=== PATIENT | female | born 1995 | race Caucasian/White ===

== ENCOUNTER 2017-05-31 13:37 | Emergency (ER) | payer MEDICAID ==
[2017-05-31 14:02] VITALS: BP 132/91; PULSE 71; RESP 16; TEMP 98.5; O2SAT 98
--- NOTE | 2017-05-31 14:41 | C.PDOC ---
History Of Present Illness 21 yo female c/o left ear pain. She notes that she was cleaning her ears and got a qtip stuck in it last night. No discharge. No fever. Time Seen by Provider: 05/31/17 14:10 Chief Complaint (Nursing): ENT Problem History Per: Patient History/Exam Limitations: None Onset/Duration Of Symptoms: Hrs Current Symptoms Are (Timing): Still Present Past Medical History Vital Signs: Last Vital Signs Temp 98.5 F 05/31/17 13:58 Pulse 71 05/31/17 13:58 Resp 16 05/31/17 13:58 BP 132/91 H 05/31/17 13:58 Pulse Ox 98 05/31/17 13:58 Family History: States: No Known Family Hx - Social History Hx Alcohol Use: No Hx Substance Use: No - Immunization History Hx Tetanus Toxoid Vaccination: No Hx Influenza Vaccination: No Hx Pneumococcal Vaccination: No Review Of Systems Constitutional: Negative for: Fever ENT: Positive for: Ear Pain. Negative for: Ear Discharge Cardiovascular: Negative for: Chest Pain Respiratory: Negative for: Cough Physical Exam - Physical Exam Appears: Well, Non-toxic, No Acute Distress Skin: Normal Color, Warm, Dry Head: Atraumatic, Normacephalic Eye(s): bilateral: Normal Inspection, EOMI Ear(s): Left: Other ((+) FB ), Right: Normal Nose: Normal Oral Mucosa: Moist Neck: Normal, Normal ROM, Supple Chest: Symmetrical Cardiovascular: Rhythm Regular Respiratory: Normal Breath Sounds Back: Normal Inspection Extremity: Normal ROM Neurological/Psych: Oriented x3, Normal Speech ED Course And Treatment O2 Sat by Pulse Oximetry: 98 Progress Note: Cotton removed with alligator forceps without difficutly. PT tolerated well. TM visualized intact, no erythema or buldging. Disposition - Disposition Referrals: Bertrand Tam MD [Staff Provider] - Disposition: HOME/ ROUTINE Disposition Time: 14:39 Condition: STABLE Additional Instructions: Follow up with your primary medical doctor or clinic in 2-5 days for further evaluation. Take medications as prescribed. Return to the emergency department at any time if symptoms persist or worsen. Instructions: Ear Foreign Body (ED) - Clinical Impression Clinical Impression: Ear foreign body
== END 2017-05-31 14:50 | disposition home or self-care (01) ==
LOC: C.ER 13:37
DX: T16.2XXA Foreign body in left ear, initial encounter (principal); X58.XXXA Exposure to other specified factors, initial encounter

== ENCOUNTER 2018-05-01 20:43 | Emergency (ER) | payer MEDICAID ==
[2018-05-01 21:32] VITALS: BP 120/85; PULSE 66; RESP 20; TEMP 98.7; O2SAT 100
--- NOTE | 2018-05-01 21:51 | C.PDOC ---
History Of Present Illness Patient complains of right ear pain and clogged sensation for 2 days with associated decreased hearing today. She reports having cold symptoms for one week and self medicating with OTC cold medications. Denies fevers, chills, headache, neck pain, dizziness. Time Seen by Provider: 05/01/18 21:37 Chief Complaint (Nursing): ENT Problem History Per: Patient History/Exam Limitations: None Onset/Duration Of Symptoms: Days Current Symptoms Are (Timing): Still Present Past Medical History Reviewed: Historical Data, Nursing Documentation, Vital Signs Vital Signs: Last Vital Signs Temp 98.7 F 05/01/18 21:28 Pulse 66 05/01/18 21:28 Resp 20 05/01/18 21:28 BP 120/85 05/01/18 21:28 Pulse Ox 100 05/01/18 21:28 - Medical History PMH: No Chronic Diseases Surgical History: No Surg Hx Family History: States: Unknown Family Hx - Social History Hx Alcohol Use: No Hx Substance Use: No - Immunization History Hx Tetanus Toxoid Vaccination: No Hx Influenza Vaccination: No Hx Pneumococcal Vaccination: No Review Of Systems Constitutional: Negative for: Fever, Weakness, Malaise Eyes: Negative for: Vision Change, Redness ENT: Positive for: Ear Pain, Nose Congestion. Negative for: Throat Pain Cardiovascular: Negative for: Palpitations Respiratory: Negative for: Shortness of Breath Gastrointestinal: Negative for: Abdominal Pain Genitourinary: Negative for: Dysuria Skin: Negative for: Rash Neurological: Negative for: Headache Physical Exam - Physical Exam Appears: Well, Non-toxic, No Acute Distress Skin: Normal Color, Warm, Dry Head: Atraumatic, Normacephalic Eye(s): bilateral: Normal Inspection, PERRL, EOMI Ear(s): Left: Normal, Right: TM Dull, Bilateral: Other (no mastoid tenderness) Nose: Normal Oral Mucosa: Moist Throat: Normal, No Erythema, No Exudate, No Drooling, No Mass Neck: Normal ROM Chest: Symmetrical Cardiovascular: Rhythm Regular, No Murmur Respiratory: Normal Breath Sounds, No Wheezing Extremity: Bilateral: Atraumatic, Normal ROM Neurological/Psych: Oriented x3, Normal Speech ED Course And Treatment O2 Sat by Pulse Oximetry: 100 Medical Decision Making Medical Decision Making: Impression: otalgia and fullness; no signs of AOM or OE on exam, no cerumen impaction or foreign body. Plan: sudafed Dispo: Recommend decongestant to help with symptoms. Follow up with ENT if symptoms persist Disposition Counseled Patient/Family Regarding: Diagnosis, Need For Followup, Rx Given - Disposition Referrals: Bertrand Tam MD [Staff Provider] - Guicho Banda MD [Staff Provider] - Disposition: HOME/ ROUTINE Disposition Time: 21:55 Condition: GOOD Additional Instructions: Take decongestant and anthistamine to help with symptoms. Can also take Tylenol or Advil for any pain. Followup with ENT if symptoms persist Prescriptions: Cetirizine HCl [Zyrtec] 10 mg PO DAILY #20 capsule Pseudoephedrine HCl [Sudafed 24-Hour] 240 mg PO DAILY #24 tab.er.24h Instructions: Loratadine and Pseudoephedrine Forms: [facility] (Salvadorean) - POA Present On Arrival: None - Clinical Impression Clinical Impression: Otalgia of right ear, Fullness in ear
== END 2018-05-01 22:22 | disposition home or self-care (01) ==
LOC: C.ER 20:43
DX: H92.01 Otalgia, right ear (principal)

== ENCOUNTER 2018-10-07 11:45 | Emergency (ER) | payer MEDICAID, OTHER ==
[2018-10-07 11:54] VITALS: O2SAT 98
[2018-10-07] MEDS ORDERED: Sodium Chloride 0.9% 1,000 ML IV ONE (12:09)
--- NOTE | 2018-10-07 12:23 | C.PDOC ---
History Of Present Illness Patient is a 22yo 17 weeks female who presents to the ED with pubic pain x 2 days. Denies vaginal bleeding, loss of fluid, movement. Patient notes small amount of nonmalodorous whitish vaginal discharge. Patient reports she has been seeing OB regularly during and with no complications. Reports mild URI symptoms (cough, runny nose) 2 days ago, otherwise denies headache, dizziness, chest pain, SOB, nausea, vomiting, diarrhea, or urinary symptoms. Time Seen by Provider: 10/07/18 12:00 Chief Complaint (Nursing): Abdominal Pain Past Medical History Vital Signs: Last Vital Signs Temp 98.5 F 10/07/18 11:51 Pulse 85 10/07/18 11:51 Resp 20 10/07/18 11:51 BP 136/92 H 10/07/18 11:51 Pulse Ox 98 10/07/18 11:51 Primary Care Provider: Car Macias - Medical History PMH: No Chronic Diseases Family History: States: Unknown Family Hx - Social History Hx Alcohol Use: No Hx Substance Use: No - Immunization History Hx Tetanus Toxoid Vaccination: No Hx Influenza Vaccination: No Hx Pneumococcal Vaccination: No Review Of Systems Except As Marked, All Systems Reviewed And Found Negative. Physical Exam - Physical Exam Appears: Well, Non-toxic, No Acute Distress (Mild discomfort) Skin: Normal Color, Warm, Dry Cardiovascular: Rhythm Regular Gastrointestinal/Abdominal: Tenderness (pubic tenderness to light palpation), No Guarding, Other ED Course And Treatment - Laboratory Results Result Diagrams: 10/07/18 12:32 10/07/18 12:32 O2 Sat by Pulse Oximetry: 98 Medical Decision Making Medical Decision Making: No VB or LOF. Reviewed patients results--OB US with FHR 154, cervix 3.4cm, fetus vertex. UA with evidence of UTI, will d/c pt with macrobid rx x 7 days. Return precautions discussed with patient. Will f/u with outpatient OBGYN Disposition Counseled Patient/Family Regarding: Studies Performed, Diagnosis, Rx Given - Disposition Disposition: HOME/ ROUTINE Disposition Time: 14:52 Condition: STABLE Prescriptions: Nitrofurantoin Macrocrystals [Macrobid] 100 mg PO BID #14 cap Instructions: Urinary Tract Infection, Adult (DC) Forms: [employer] (Kittitian), General Discharge Instructions - POA Present On Arrival: None - Clinical Impression Clinical Impression: UTI (urinary tract infection) during
[2018-10-07 12:36] LABS: BASO % 0.3 % (0.0-2.0); EOS # 0.4 K/uL (0.0-0.7); EOS % 3.2 % (0.0-4.0); HEMOGLOBIN 11.7 g/dL (11.0-16.0); LYMPH # 2.8 K/uL (1.0-4.3); LYMPH % 22.6 % (20.0-40.0); MEAN CELL VOLUME 71.8 fL (81.0-99.0); MEAN CORPUSCULAR HEMOGLOBIN 23.1 pg (27.0-31.0); MEAN CORPUSCULAR HGB CONC 32.2 g/dL (33.0-37.0); MEAN PLATELET VOLUME 10.3 fL (7.2-11.7); MONO # 0.8 K/uL (0.0-0.8); MONO % 6.7 % (0.0-10.0); NEUT # 8.5 K/uL (1.8-7.0); NEUT % 67.2 % (50.0-75.0); RBC 5.05 Mil/uL (3.80-5.20); RED CELL DISTRIBUTION WIDTH 15.6 % (11.5-14.5); WHITE BLOOD COUNT 12.6 K/uL (4.8-10.8)
[2018-10-07 13:04] LABS: ALB/GLOB RATIO 1.1 (1.0-2.1); ALBUMIN 3.8 g/dL (3.5-5.0); ALT/SGPT 32 U/L (9-52); AST/SGOT 25 U/L (14-36); BLOOD UREA NITROGEN 5 mg/dL (7-17); CALCIUM 9.2 mg/dl (8.6-10.4); GFR NON-AFRICAN AMERICAN > 60
[2018-10-07 14:14] LABS: SQUAMOUS EPITHIAL 13 /hpf (0-5); URINE BACTERIA RARE (<OCC); URINE BILIRUBIN NEGATIVE (NEGATIVE); URINE BLOOD 2+ (NEGATIVE); URINE CLARITY Hazy (Clear); URINE COLOR Yellow (YELLOW); URINE GLUCOSE (UA) NORMAL (Normal); URINE LEUKOCYTE ESTERASE 3+ Leu/uL (Negative); URINE PROTEIN NEGATIVE (NEGATIVE); URINE UROBILINOGEN NORMAL mg/dL (0.2-1.0)
[2018-10-07 14:46] VITALS: BP 118/73; PULSE 70; RESP 18; TEMP 98.1
--- NOTE | 2018-10-07 17:40 | US ---
Date of service: 10/07/2018 PROCEDURE: OB Pelvic Ultrasound HISTORY: /pain LMP: 06/05/2018 COMPARISON: None available. FINDINGS: UTERUS: Gestational sac: Single intrauterine fetus in the cephalic presentation. Heart rate: 154 bpm. BPD: 3.91 cm corresponding to 17 weeks and 6 days of gestational age. HC: 14.97 cm corresponding to 18 weeks and 0 day of gestational age. AC: 13.08 cm corresponding to 18 weeks and 4 days of gestational age. FL: 2.43 cm corresponding to 17 weeks and 2 days of gestational age. age (Ultrasound estimated): 18 weeks and 0 day Julia-gestational hemorrhage: None. Date of delivery (Ultrasound estimated) : 03/10/2019 Placenta is fundal and posterior. CERVIX: Measures 3.4 cm. Long and closed. No cervical abnormality seen. RIGHT OVARY: Not visualized. LEFT OVARY: Not visualized. FREE FLUID: None. OTHER FINDINGS: None. IMPRESSION: Single live intrauterine fetus in cephalic presentation with mean gestational age of 18 weeks and 0 day. The estimated date of delivery by ultrasound is 03/10/2019. Please note this is a limited OB ultrasound performed on an emergent basis. Dedicated anatomic survey is advised. A preliminary report was provided by [employer].
== END 2018-10-07 15:17 | disposition home or self-care (01) ==
LOC: C.ER 11:45
DX: O23.42 Unspecified infection of urinary tract in pregnancy, second trimester (principal); Z3A.18 18 weeks gestation of pregnancy
CPT/HCPCS: 76815; 80053; 81001; 84702; 85025; 96360; 99284; J7030